=== PATIENT | female | born 1960 | race Caucasian/White ===

== ENCOUNTER 2016-11-04 10:27 | Day surgery (SDC) | payer OTHER ==
--- NOTE | ~2016-11-04 | EGD ---
EGD REPORT [facility] [address] [address] NAME: MEHREEN WILLS : 60 STATUS : REG [facility] PAT#: [id number] AGE: 56 ADM/REG DATE : 11/04/16 MR#: [id number] REPORT SERV DATE: 11/04/16 DICTATED BY: CORRINE CHAMBERLAIN DATE: 11/04/16 REPORT STATUS : Draft TRANSCRIBED BY: [employer] DATE: 11/04/16 [facility] Patient Name: Mehreen Wills Date of : 1960 Attending MD: CORRINE CHAMBERLAIN MD Procedure Date No Time: 11/04/2016 Procedure: Colonoscopy Indications: High risk colon cancer surveillance: Personal history of colonic polyps Referring MD: GERRY SAMSON Medicines: Monitored Anesthesia Care Complications: No immediate complications. Procedure: Pre-Anesthesia Assessment: - ASA Grade Assessment: III - A patient with severe systemic disease. After I obtained informed consent, the scope was passed under direct vision. Throughout the procedure, the patient's blood pressure, pulse, and oxygen saturations were monitored continuously. The PCF [id number] was introduced through the anus and advanced to the terminal ileum, with identification of the appendiceal orifice and IC valve. The colonoscopy was performed without difficulty. The patient tolerated the procedure well. The quality of the bowel preparation was good. Findings: The digital rectal exam was normal. Pertinent negatives include no palpable rectal lesions. Hemorrhoids were found during retroflexion and were mild. Three sessile polyps were found in the ascending colon. The polyps were 6 to 10 mm in size. These polyps were removed with a cold snare. Resection and retrieval were complete. Impression: - Hemorrhoids. - Three 6 to 10 mm polyps in the ascending colon. Resected and retrieved. Recommendation: - Patient has a contact number available for emergencies. The signs and symptoms of potential delayed complications were discussed with the patient. Return to normal activities tomorrow. Written discharge instructions were provided to the patient. - Regular diet. - Continue present medications. - Repeat colonoscopy in 3 - 5 years for surveillance EGD REPORT [address] [address] NAME: MEHREEN WILLS : [birth year] STATUS : REG [facility]#: [id number] AGE: 56 ADM/REG DATE : 11/04/16 MR#: [id number] REPORT SERV DATE: 11/04/16 DICTATED BY: CORRINE CHAMBERLAIN DATE: 11/04/16 REPORT STATUS : Draft TRANSCRIBED BY: [employer] DATE: 11/04/16 based on pathology results. - Return to GI clinic PRN. Procedure Code(s): --- Professional --- 19854, Colonoscopy, flexible, proximal to splenic flexure; with removal of tumor(s), polyp(s), or other lesion(s) by snare technique Diagnosis Code(s): --- Professional --- K64.9, Unspecified hemorrhoids D12.2, Benign neoplasm of ascending colon Z86.010, Personal history of colonic polyps CPT copyright 2013 [employer]. All rights reserved. The codes documented in this report are preliminary and upon finance business partner review may be revised to meet current compliance requirements. CORRINE CHAMBERLAIN MD 11/04/2016 1:21 PM This report has been signed electronically. Number of Addenda: 0 Note Initiated On: 11/04/2016 12:50 PM Scope Withdrawal Time 0 hours 12 minutes 20 seconds [address] [id number]
[~2016-11-04 10:27] MED LIST: ADIPEX-P37.5 MG PO; CELEXA20 PO; LEVAQUIN5T PO; LOTE20 PO; MAXIMUM D3 PO; NASONEX NAS; NORCO1 TAB PO; OXYCON10 PO; P125 PO; PROLOP100 PO; PROTONIX PO; SINGULAIR1 PO; TRICOR145 PO; VALIUM10 MG PO
== END 2016-11-04 23:59 | disposition home or self-care (01) ==
LOC: DMU 10:27
PROVIDERS: Internal Medicine Gastroenterology
PROC: 0DBK8ZZ Excision of Ascending Colon, Via Natural or Artificial Opening Endoscopic (ICD-10-PCS; principal; 2016-11-04 11:30)
DX: Z12.11 Encounter for screening for malignant neoplasm of colon (principal); D12.2 Benign neoplasm of ascending colon; K63.5 Polyp of colon; K64.9 Unspecified hemorrhoids; Z86.010 Personal history of colon polyps; F17.210 Nicotine dependence, cigarettes, uncomplicated; K21.9 Gastro-esophageal reflux disease without esophagitis; J45.909 Unspecified asthma, uncomplicated; G89.29 Other chronic pain; M54.9 Dorsalgia, unspecified; Z88.0 Allergy status to penicillin; Z88.1 Allergy status to other antibiotic agents; Z79.899 Other long term (current) drug therapy; Z79.891 Long term (current) use of opiate analgesic
CPT/HCPCS: 82962; 88305; J2405

== ENCOUNTER 2017-03-05 15:53 | Observation (INO) | payer OTHER ==
[~2017-03-05] VITALS: Ht 152.4 cm; Wt 66.2 kg
--- NOTE | ~2017-03-05 | HP ---
History And Physical [place] [id number] [facility] [place]. [address] NAME: ALONSO WILLS : 60 STATUS : ADM Jing PAT#: [id number] AGE: 56 ADM/REG DATE : 03/05/17 MR#: [id number] REPORT SERV DATE: 03/05/17 DICTATED BY: DATE: REPORT STATUS : Draft TRANSCRIBED BY: MODL DATE: 03/05/17 DATE OF ADMISSION: 03/05/2017 The patient is admitted to the [facility]. CHIEF COMPLAINT: Shortness of breath. HISTORY OF PRESENT ILLNESS: Ms. Wills is a 56-year-old white female who presents to the emergency department with chief complaint of progressive shortness of breath, cough, weakness, and malaise for the past two weeks. She had an upper respiratory illness about two weeks ago and was started on a Z-Daivs and prednisone by her primary care provider, Dr. Coreas. Despite completing this, she felt that her symptoms did not improve, and in fact, have progressed more rapidly over the past three days. She endorses chills and some pleuritic chest pain. She also endorses abdominal pain related to frequent coughing. She denies any nausea or vomiting. She denies any chest pain. She denies any measured fevers. Her cough is largely dry but occasionally productive of phlegm. She has been attempting to manage her symptoms with Robitussin at home, but came to the emergency department this morning with "smothering and can't get my breath." Symptoms are particularly noticeable with exertion although also occur at rest. On arrival to the ER, she was noted to be hypoxemic with room air oxygen saturations of 89%. She was also found to be wheezing. Labs and chest x-ray have been obtained and are normal, but despite receiving Solu-Medrol here in the ER, the patient continues to wheeze and was unable to come off oxygen in order to be discharged from the ER. Therefore, she is referred to the Hospitalist Service for further management. REVIEW OF SYSTEMS: Full 14-point review of systems is negative except as dictated in the history of present illness. PAST MEDICAL HISTORY: Includes 1. Allergic rhinitis. 2. Hypertension. 3. Hyperlipidemia. 4. Osteoarthritis in multiple joints. 5. Degenerative disk disease and chronic back pain with narcotic dependence. 6. Xml-jgzgnuq-swebuityv diabetes mellitus type 2. 7. Hormone replacement therapy. PAST SURGICAL HISTORY: Includes bilateral tubal ligation, hysterectomy, cholecystectomy, and carpal tunnel release on the right hand x2. ALLERGIES: PENICILLIN CAUSES LIP SWELLING. THE PATIENT ALSO CITES THE ALLERGY TO LEVOFLOXACIN ALTHOUGH HAS TAKEN IT SUCCESSFULLY IN THE PAST. SHE STATES SHE WAS ADVISED NOT History And Physical [address] [address] NAME: ALONSO WILLS : [birth year] STATUS : ADM Jing PAT#: [id number] AGE: 56 ADM/REG DATE : 03/05/17 MR#: [id number] REPORT SERV DATE: 03/05/17 DICTATED BY: DATE: REPORT STATUS : Draft TRANSCRIBED BY: KIEL DATE: 03/05/17 TO TAKE IT BECAUSE HER PRIMARY CARE PROVIDER SAID IT WOULD NEGATIVELY IMPACT HER BONES. HOME MEDICATIONS: Includes 1. Lotensin 20 mg p.o. at bedtime. 2. D3 one cap p.o. weekly on Mondays. 3. Celexa 20 mg p.o. daily. 4. Robitussin 20 mL every four hours as needed for cough. 5. Valium 10 mg p.o. twice a day. 6. Premarin 1.25 mg p.o. daily. 7. TriCor 145 mg p.o. at bedtime. 8. Flonase one spray in each nostril daily. 9. Hydrocodone/acetaminophen 10/325 mg one tablet p.o. four times a day scheduled. 10.Metformin ER 500 mg p.o. with supper. 11.Singulair 10 mg p.o. at bedtime. 12.Oxycodone 10 mg p.o. twice a day. 13.Protonix 40 mg p.o. daily. 14.Trimethoprim 100 mg p.o. daily. 15.Vitamin C 1 tablet p.o. daily. SOCIAL HISTORY: The patient is and resides in [place], [place]. She has two children, one of whom is at the bedside. Her cousin is also here. She smokes and has smoked about 1 pack a day for the past 40 years. She does not drink any alcohol or use any illicit substances. FAMILY HISTORY: Pertinent for COPD in multiple first-degree relatives. PHYSICAL EXAMINATION: VITAL SIGNS: Blood pressure 183/77, temperature 98.4, pulse 91, respirations 22, and oxygen saturation is 89% on room air and 94% on 2 L. GENERAL: This is a well-developed, well-nourished, white female, looking older than her stated age, in no acute distress. Alert and oriented in three dimensions. Asking to be discharged from the ER. HEENT: Normocephalic, atraumatic. Pupils are equally round and reactive to light. No scleral icterus or conjunctival pallor. No sinus tenderness to palpation or nasal drainage. Oropharynx is moist and pink. The patient has poor dentition. No posterior pharyngeal erythema nor exudate. NECK: Supple. No jugular venous distention. No lymphadenopathy and no bruits. CARDIOVASCULAR: Regular rate and rhythm with no murmurs, rubs, or gallops. LUNGS: Inspiratory rhonchi at bilateral bases with end-expiratory wheezing heard posteriorly throughout all lung pruitt. No accessory muscle use and no respiratory distress. ABDOMEN: Soft, nontender, and nondistended with normoactive bowel sounds in four quadrants and no hepatosplenomegaly. EXTREMITIES: No cyanosis, clubbing, or edema. SKIN: Normal skin turgor with no rash or skin breakdown. NEUROLOGIC: Cranial nerves 2 through 12 were tested and are intact. Strength is 5/5 bilateral upper and lower extremities. Sensation is intact to fine touch and temperature in all four limbs. History And Physical [address] [address] NAME: ALONSO WILLS : 60 STATUS : ADM Jing PAT#: [id number] AGE: 56 ADM/REG DATE : 03/05/17 MR#: [id number] REPORT SERV DATE: 03/05/17 DICTATED BY: DATE: REPORT STATUS : Draft TRANSCRIBED BY: MODL DATE: 03/05/17 LABORATORY DATA: White blood cell count 7.9, hemoglobin 14, hematocrit 43, and platelets 253. Sodium 141, potassium 4.2, chloride 106, bicarb 27, BUN 14, creatinine 0.7, and glucose 202. BNP 26. Coagulation studies are normal. Calcium 9.3 and magnesium 2.0. IMAGING: Chest x-ray by my read shows no infiltrate. EKG by my read shows no ST or T-wave changes to suggest cardiac ischemia. IMPRESSION: 1. Bronchitis with recent outpatient treatment with azithromycin and prednisone and refractory symptoms despite that. 2. Acute hypoxemic respiratory failure with room air oxygen saturations 89%. 3. Probable underlying chronic obstructive pulmonary disease given presentation, with extensive smoking history. 4. Chronic pain syndrome and narcotic dependence. 5. Hypertension. 6. Hyperlipidemia. 7. Osteoarthritis. 8. Okq-cccnzmm-rbmhvhdpu diabetes mellitus type 2. PLAN: 1. Observation admission to cardiac telemetry-attending, Dr. Kalpesh Mar. 2. Given the patient's penicillin allergy and Levaquin intolerance, she will be placed on Rocephin 2 g IV q.24 hours and placed on oral azithromycin 250 mg p.o. daily given that she was treated recently. 3. She will be placed on nebulized bronchodilators and nebulized steroids. 4. Pulmonary toilet. 5. IV amuvitmo-Mgqb-Bbeuhe 60 mg IV every 12 hours. 6. Supplemental oxygen as needed-reevaluate for home oxygen tomorrow, with possible discharge tomorrow afternoon pending clinical course. 7. Low-dose Levemir and sliding scale insulin for probable steroid-induced hyperglycemia in this known diabetic patient. Additional recommendations pending results of above. AKS/MODL Kalpesh Mar M.D. / [id number] CC: Rahat Smith M.D.
--- NOTE | ~2017-03-05 | DS ---
Discharge Summary [facility] [address] [facility] [place]. [address] NAME: ALONSO WILLS : 60 STATUS : DIS [facility] PAT#: [id number] AGE: 56 ADM/REG DATE : 03/05/17 MR#: [id number] REPORT SERV DATE: 03/07/17 DICTATED BY: Patrick CHAIDEZ DATE: 03/06/17 REPORT STATUS : Draft TRANSCRIBED BY: MODL DATE: 03/06/17 ADMISSION DATE: 03/05/2017 DISCHARGE DATE: 03/06/2017 DISCHARGE DIAGNOSES: 1. Bronchitis with recent outpatient treatment. 2. Acute hypoxic respiratory failure. 3. Acute on chronic, chronic obstructive pulmonary disease secondary to tobacco abuse. 4. Chronic pain syndrome with opioid dependence. 5. Hypertension. 6. Hyperlipidemia. 7. Osteoarthritis. 8. Diabetes mellitus type 2 with A1c of 8.5. PROCEDURES AND IMAGIN03/05/2017, portable chest x-ray showed no acute cardiopulmonary abnormality. HOSPITAL COURSE: Please refer to H and P dictated on 03/05/[address] Kalpesh Mar. In brief, the patient was admitted by Dr. Mar for initial work up and management of her shortness of breath, cough, weakness, and malaise. The patient has had a history of respiratory illness two weeks ago and had been started on a Z-Davis and steroids by her primary care provider solar field installation crew member, Dr. Coreas. Despite completing this, her symptoms did not improve. The patient has been functioning well without her oxygen with O2 saturation of 91% to 94%. We are doing a home O2 eval prior to discharging the patient, and if this patient requires home oxygen, this will be ordered. The patient has acute on chronic COPD, probably secondary to tobacco abuse. The patient will be started on Symbicort and Proventil as well as albuterol nebulizers. The patient will be continued on her Zithromax for four days as well as Tessalon Perles. The patient has expressed a desire to stop smoking, but has failed oral therapy. The patient has been prescribed Habitrol patches at this time to be followed up by her PCP. The patient has had well-controlled pain with her routine pain medications. The patient has a history of hypertension which has been between 140s to 160s over 60s to 70s in the last 18 hours. The patient has been afebrile with minimal tachycardia. Of note, the patient has had a procalcitonin of less than 0.05 and her white count was 7.9. The patient states that she has been feeling better today and breathing better today. Denies fever and chills and denies shortness of breath with activity. PHYSICAL EXAMINATION: VITAL SIGNS: Blood pressure is 141/65, O2 saturation is 94% on room air, temp is 97.2, heart rate is 107, respirations are 18. HEENT: Head is atraumatic, normocephalic. Pupils are equal, round, reactive to light and accommodation. Sclerae are clear nonicteric. NECK: Neck is supple with no obvious thyromegaly or lymphadenopathy. Neck veins are flat. Trachea is midline. LUNGS: Bilaterally decreased in the bases with scattered expiratory wheezes. CARDIOVASCULAR: Regular rhythm without obvious murmurs, rubs, or gallops. Discharge Summary [address] [address] NAME: ALONSO WILLS : 60 STATUS : DIS Jing PAT#: [id number] AGE: 56 ADM/REG DATE : 03/05/17 MR#: [id number] REPORT SERV DATE: 03/07/17 DICTATED BY: Patrick CHAIDEZ DATE: 03/06/17 REPORT STATUS : Draft TRANSCRIBED BY: KIEL DATE: 03/06/17 GI: Abdomen is soft and nontender with active bowel sounds in all four quadrants. Normal bowel habitus. No palpable organomegaly. EXTREMITIES: No significant edema, clubbing, or cyanosis. Dorsalis pedis and posterior tibial pulses are present and equal bilaterally. MUSCULOSKELETAL: Moves all extremities x4, is ambulatory without assistance and has no difficulties with balance. SKIN: Skin is warm and dry with normal color and turgor. No unusual rashes or lesions. NEURO/PSYCH: The patient is alert and oriented x3. Pleasant and cooperative. Cranial nerves II through XII are grossly intact. Of note, the patient has had hyperglycemia due to A1c of 8.5 as well as IV steroids and has ranged between 236 and 307. DISCHARGE DIET: The patient will be discharged to home on an 1800 calorie diet. The patient is also having diabetic teaching. DISCHARGE MEDICATIONS: Azithromycin 250 mg p.o. daily x4 days, benazepril 20 mg daily, Celexa 20 mg daily, vitamin D 10,000 units on Mondays, Valium 10 mg p.o. twice daily, fenofibrate 145 mg daily, [place] 10 mg/325 mg four times daily, Singulair 10 mg daily, Habitrol 14 mg patches daily, Protonix 40 mg daily, trimethoprim 100 mg daily, Fortamet 500 mg daily, Roxicodone 10 mg twice daily, Robitussin 20 mL q.4 hours p.r.n. cough, vitamin C one tablet daily, Premarin 1.25 mg daily, Flonase one spray in each nostril p.r.n. allergies, Tessalon Perles 200 mg t.i.d. p.r.n. cough, Symbicort 160/4.5 two puffs twice daily, Proventil inhaler q.4 hours p.r.n. shortness of breath, albuterol nebulizers four times daily. ALLERGIES: THE PATIENT IS ALLERGIC TO PENICILLIN FOR WHICH SHE GETS RASH AND SWELLING AND LEVAQUIN FOR WHICH SHE HAS ITCHING. DISCHARGE INSTRUCTIONS: The patient is to follow up with her primary care provider in 7 to 10 days. The patient also needs to keep a blood sugar log for primary care provider to take in with her for her appointment. The patient is being discharged to home on an 1800 calorie diet. We have ordered para educator to see the patient prior to discharge and recommend outpatient diabetic education as well. If the patient is to develop anymore extremes shortness of breath, she is to call her PCP or present to the ER. Approximately 40 minutes has been spent coordinating discharge care of this patient including seec-di-dzvg encounter and summarization of the discharge. Collaborating physician, Dr. William Chaidez. SLC/MODL Latasha Jarvis NP Discharge Summary [address] [address] NAME: ALONSO WILLS : 60 STATUS : DIS [facility]ing PAT#: [id number] AGE: 56 ADM/REG DATE : 03/05/17 MR#: [id number] REPORT SERV DATE: 03/07/17 DICTATED BY: Patrick CHAIDEZ DATE: 03/06/17 REPORT STATUS : Draft TRANSCRIBED BY: MODL DATE: 03/06/17 Patrick Chaidez M.D. / [id number] CC: Rahat Rocha M.D.
[2017-03-05 16:41] LABS: BASOPHILS 0.3 %; BASOPHILS ABSOLUTE 0.02 10/3/uL (0.0-0.16); EOSINOPHILS ABSOLUTE 0.16 10/3/uL (0.0-0.53); HEMATOCRIT 42.6 % (36.0-48.0); IMMATURE GRANULOCYTES 0.3 %; IMMATURE GRANULOCYTES ABSOLUTE 0.02 10/3/uL (0.0-0.11); LYMPHOCYTES 36.8 %; MEAN CORPUS HGB CONC 32.9 g/dL (32.0-36.0); MEAN CORPUSCULAR HEMOGLOB 29.9 pg (26.0-34.0); MONOCYTES 6.6 %; MONOCYTES ABSOLUTE 0.52 10/3/uL (0.21-1.20); NEUTROPHILS ABSOLUTE 4.26 10/3/uL (2.02-8.40); PLATELET COUNT 253 10/3/uL (150-400); RBC DISTRIBUTION WIDTH 13.1 % (12.0-16.0); RED CELL COUNT 4.69 10/6/uL (4.0-5.6); WHITE BLOOD CELLS 7.9 10/3/uL (4.5-10.5)
[2017-03-05 16:42] LABS: MANUAL DIFF NO %; MEAN CORPUSCULAR VOLUME 90.8 fL (80-100)
[2017-03-05 16:49] LABS: PARTIAL THROMBO TIME 38.3 SEC (22.5-37.2); PROTIME (NOT ORD) 12.6 SEC (12.0-14.5)
[2017-03-05 16:59] LABS: CALCIUM, SERUM 9.3 MG/DL (8.5-10.4); CHEST PAIN PROFILE TAT 0 Hrs 22 Mins; CHLORIDE, SERUM 106 MMOL/L (96-112); CO2 (CARBON DIOXIDE) 27 MMOL/L (24-34); CREATININE 0.71 MG/DL (0.55-1.02); GFR AFRICAN AMERICAN 110 ML/MIN (>=60); GFR NON AFRICAN AMERICAN 95 ML/MIN (>=60); POTASSIUM, SERUM 4.2 MMOL/L (3.5-5.3); SODIUM, SERUM 141 MMOL/L (135-148); TROPONIN I <0.02 NG/ML (<0.05)
[2017-03-05 17:01] LABS: BUN (BLOOD UREA NITROGEN) 14 MG/DL (6-23); GLUCOSE, SERUM 202 MG/DL (60-99)
[2017-03-05] MEDS ORDERED: VITAMIN C PO (17:54)
[2017-03-05] MEDS ORDERED: MAXIMUM D3 PO (17:54)
[2017-03-05] MEDS ORDERED: PROTONIX PO (17:55)
[2017-03-05] MEDS ORDERED: CELEXA20 PO (17:55)
[2017-03-05] MEDS ORDERED: PROLOP100 PO (17:55)
[2017-03-05] MEDS ORDERED: SINGULAIR1 PO (17:56)
[2017-03-05] MEDS ORDERED: TRICOR145 PO (17:56)
[2017-03-05] MEDS ORDERED: P125 PO (17:56)
[2017-03-05] MEDS ORDERED: FORTAMET500 MG PO (17:56)
[2017-03-05] MEDS ORDERED: FLONASE NAS (17:57)
[2017-03-05] MEDS ORDERED: VALIUM10 MG PO (17:58)
[2017-03-05] MEDS ORDERED: NORCO1 TAB PO (17:58)
[2017-03-05] MEDS ORDERED: OXYCOD PO (17:58)
[2017-03-05] MEDS ORDERED: ROBITUSS P7.5 MG/5 M PO (17:59)
[2017-03-05] MEDS ORDERED: LOTE20 PO (18:00)
[2017-03-05 19:02] LABS: PROCALCITONIN <0.05 ng/mL (<0.5)
[2017-03-06] MEDS ORDERED: SYMBICORT 160/41 INH INH (16:17)
[2017-03-06] MEDS ORDERED: PROVHFA INH (16:17)
[2017-03-06] MEDS ORDERED: TESSALON200 MG PO (16:18)
[2017-03-06] MEDS ORDERED: ALBUTEROL5 INH (16:18)
[2017-03-06] MEDS ORDERED: HABIT14 TOP (16:19)
[2017-03-06] MEDS ORDERED: ZITHROMAX500 MG PO (16:19)
== END 2017-03-06 16:43 | disposition home or self-care (01) ==
LOC: ER 15:53 → CDU1 18:01 → CDU2 18:01
PROVIDERS: Emergency Medicine
DX: J44.9 Chronic obstructive pulmonary disease, unspecified (principal); J96.01 Acute respiratory failure with hypoxia; F17.210 Nicotine dependence, cigarettes, uncomplicated; G89.4 Chronic pain syndrome; I10 Essential (primary) hypertension; E78.5 Hyperlipidemia, unspecified; M19.90 Unspecified osteoarthritis, unspecified site; E11.9 Type 2 diabetes mellitus without complications; F11.20 Opioid dependence, uncomplicated; Z79.899 Other long term (current) drug therapy; Z88.0 Allergy status to penicillin; Z88.1 Allergy status to other antibiotic agents; Z98.51 Tubal ligation status; Z90.710 Acquired absence of both cervix and uterus; Z90.49 Acquired absence of other specified parts of digestive tract; Z98.890 Other specified postprocedural states; Z90.89 Acquired absence of other organs
CPT/HCPCS: 71010; 80048; 82962; 83036; 83735; 83880; 84145; 84484; 85025; 85610; 85730; 87070; 87205; 93005; 94640; 96372; 96374; 96375; 96376; 99285; A9270-GY; G0378; J2930